=== PATIENT | female | born 1975 | race Hispanic/Latino ===

== ENCOUNTER → 2017-11-05 | Outpatient (CLI) | payer BC | END | disposition home or self-care (01) | LOC: RAH 15:11 | PROVIDERS: ATTEND Internal Medicine | DX: Z12.31 Encounter for screening mammogram for malignant neoplasm of breast (principal) | CPT/HCPCS: 77067 ==

== ENCOUNTER → 2020-07-10 | Outpatient (CLI) | payer BC | END | disposition home or self-care (01) | LOC: RAH 15:08 | PROVIDERS: ATTEND Obstetrics & Gynecology | DX: Z12.31 Encounter for screening mammogram for malignant neoplasm of breast (principal) | CPT/HCPCS: 77067 ==

== ENCOUNTER 2020-12-06 06:27 | Day surgery (SDC) | payer BC ==
[2020-11-28 14:31] LABS: BASOPHILS % (AUTO) 0.7 % (0.0-5.0); EOSINOPHILS % (AUTO) 0.9 % (0.0-8.0); HEMATOCRIT 41.8 % (36-48); LYMPHOCYTES % (AUTO) 36.1 % (21.0-51.0); MEAN CORPUSCULAR HEMOGLOBIN 29.6 pg (27.0-33.0); MEAN CORPUSCULAR HGB CONC 33.3 g/dL (32.0-36.0); MEAN CORPUSCULAR VOLUME 89.1 fL (79-99); MONOCYTES % (AUTO) 5.3 % (3.0-13.0); NEUTROPHILS % (AUTO) 56.9 % (40.0-77.0); PLATELET COUNT (AUTO) 325 K/uL (130-400); RED BLOOD CELL COUNT(AUTO) 4.69 MIL/uL (4.00-5.50); RED CELL DISTRIBUTION WIDTH 12.8 % (11.0-15.5); WHITE BLOOD COUNT (AUTO) 8.1 K/uL (4.8-10.8)
[2020-12-05 13:38] VITALS: BP 140/60
[~2020-12-06] VITALS: Ht 162.6 cm; Wt 85.5 kg
[2020-12-06] VITALS (20 sets, daily range): BP systolic 109–127; BP diastolic 58–76
[~2020-12-06 06:27] MED LIST: ASCO100031 PO; CEFAZOLIN SODIUM 1 GM VIAL IVP SCH; METRONIDAZOLE 500MG/100ML BAG 100 ML IVPB SCH; OXYM15MI2 NS
[2020-12-06] MEDS ORDERED: SUCCINYLCHOLINE 200MG/10ML SYR ONE (07:17)
[2020-12-06] MEDS ORDERED: LIDOCAINE PF 100MG/5ML (2%) SYRINGE 5ML ONE (07:17)
[2020-12-06] MEDS ORDERED: FENTANYL CITRATE PF 50 MCG/1 ML 2ML VIAL ONE (07:18)
[2020-12-06] MEDS ORDERED: PHENAZOPYRIDINE HCL 200 MG TABLET ONE (07:18)
[2020-12-06] MEDS ORDERED: PROPOFOL 10 MG/ML 20ML VIAL IV ONE (07:18)
[2020-12-06] MEDS ORDERED: ROCURONIUM 10MG/1ML SYR 10 MG/ML ML ONE (07:18)
[2020-12-06] MEDS ORDERED: LACTATED RINGERS 1000ML 1,000 ML IV ONE (07:20)
[2020-12-06] MEDS ORDERED: LIDOCAINE 1%-EPI 1:100,000 20 ML VIAL IJ SCH (07:30)
[2020-12-06] MEDS ORDERED: GLYCOPYRROLATE 1 MG/5 ML SYRINGE ONE (08:33)
== END 2020-12-06 12:10 | disposition home or self-care (01) ==
LOC: DAH 06:27
PROVIDERS: ATTEND Obstetrics & Gynecology
DX: N39.3 Stress incontinence (female) (male) (principal); Z79.899 Other long term (current) drug therapy
CPT/HCPCS: 36415; 57288; 85025; 87635; A4215 ×2; A4221 ×2; A4222 ×2; A4223 ×2; A4663; C1771; C9803; J0330; J0690; J2001; J2704; J3010; J3490 ×3; J7120 ×2

== ENCOUNTER → 2022-07-22 | Outpatient (CLI) | payer BC ==
[~2022-07-22] MED LIST changes: -CEFAZOLIN SODIUM 1 GM VIAL IVP SCH; -METRONIDAZOLE 500MG/100ML BAG 100 ML IVPB SCH
== END | disposition home or self-care (01) ==
LOC: RAH 08:22
PROVIDERS: ATTEND Obstetrics & Gynecology
DX: Z12.31 Encounter for screening mammogram for malignant neoplasm of breast (principal)
CPT/HCPCS: 77067

== ENCOUNTER → 2023-11-18 | Outpatient (CLI) | payer BC ==
[~2023-11-18] MED LIST changes: +PHENYLEPHRINE HCL 10 MG/ML 1ML VIAL IV ONE
== END | disposition home or self-care (01) ==
LOC: RAH 14:39
PROVIDERS: ATTEND Obstetrics & Gynecology
DX: Z12.31 Encounter for screening mammogram for malignant neoplasm of breast (principal); R92.323 Mammographic fibroglandular density, bilateral breasts
CPT/HCPCS: 77067; J2371

== ENCOUNTER → 2024-10-07 | Outpatient (CLI) | payer BC ==
[~2024-10-07] MED LIST changes: -PHENYLEPHRINE HCL 10 MG/ML 1ML VIAL IV ONE
--- NOTE | 2024-10-07 15:29 | HMCIMG ---
DEXA BONE DENSITY SURVEY HISTORY: Postmenopausal COMPARISON: None FINDINGS: Bone densitometry study was performed. Bone mineral density of the lumbar spine is 0.833 gram per centimeter square which corresponds to a T score of -1.9 and a Z score of -1.2. Bone mineral density of the left hip is 0.872 grams per centimeter square which corresponds to a T score of -0.6 and a Z score of -0.1. IMPRESSION: 1. Normal bone mineral density of the left hip and osteopenia of the lumbar spine..
== END | disposition home or self-care (01) ==
LOC: RAH 08:17
PROVIDERS: ATTEND Internal Medicine
DX: M85.88 Other specified disorders of bone density and structure, other site (principal); Z13.820 Encounter for screening for osteoporosis; Z78.0 Asymptomatic menopausal state
CPT/HCPCS: 77080

== ENCOUNTER → 2024-11-18 | Outpatient (CLI) | payer BC ==
--- NOTE | 2024-11-19 08:59 | HMCIMG ---
Exam Type: MAMMO SCREENING BILATERAL Clinical Information: ANNUAL SCREENING Comparison: November 18, 2023 Technique: Mammogram with CAD was performed with CC and MLO projections. CAD shows no worrisome regions. FINDINGS: The breasts are heterogeneously dense, which may obscure small masses. No dominant mass or suspicious microcalcification identified. There is no nipple retraction or skin thickening. Benign-appearing calcifications are seen. CAD shows no worrisome regions. IMPRESSION: 1. No mammographic signs of malignancy. 2. Routine follow-up recommended. CATEGORY 2: BENIGN FINDINGS Note: A negative x-ray should not delay biopsy if a dominant or clinically suspicious mass is present, since 8-10% of cancers are not identified by mammography. Dense breasts may obscure an underlying neoplasm.
== END | disposition home or self-care (01) ==
LOC: RAH 10:57
PROVIDERS: ATTEND Obstetrics & Gynecology
DX: Z12.31 Encounter for screening mammogram for malignant neoplasm of breast (principal); R92.333 Mammographic heterogeneous density, bilateral breasts
CPT/HCPCS: 77067

== ENCOUNTER → 2024-12-22 | Outpatient (CLI) | payer BC | END | disposition home or self-care (01) | LOC: RAH 14:12 | PROVIDERS: ATTEND Obstetrics & Gynecology | DX: N60.11 Diffuse cystic mastopathy of right breast (principal); N60.12 Diffuse cystic mastopathy of left breast ==

== ENCOUNTER → 2025-01-10 | Outpatient (CLI) | payer BC ==
[~2025-01-10] MED LIST changes: -ASCO100031 PO; +ASCO10004 PO
[2025-01-10 09:49] LABS: INR 0.97 (0.85-1.15)
--- NOTE | 2025-01-10 11:55 | NUR ---
U/S GD LT BREAST BX PROCEDURE PERFORMED BY DR CURTIS. PUNCTURE SITE LT BREAST AND PATIENT TOLERATED PROCEDURE WELL. SPECIMEN X 4 COLLECTED AND SENT TO LAB. END OF PROCEDURE AT 1135. BREAST TISSUE MARKER DEPLOYED. BIOPSY NEEDLE REMOVED AND DRESSING APPLIED. NO BLEEDING NOTED. DISCHARGE INSTRUCTIONS GIVEN TO PATIENT AND VERBALIZED UNDERSTANDING. DISCHARGED VIA AMBULATORY AAO X3 WITH NO C/O PAIN.
--- NOTE | 2025-01-10 12:17 | HMCIMG ---
PERCUTANEOUS ULTRASOUND-GUIDED BIOPSY OF left breast at 9:00 BREAST MASS with placement of a biopsy marker: CLINICAL HISTORY: This is a 49 [id number] female with left breast lesion at 9:00 for ultrasound-guided biopsy. The risk and benefit was explained to the patient. The risks include bleeding and infection. The patient consented to the procedure. Procedure: Under ultrasound guidance left breast lesion at 9:00 was localized. was localized. After sterile prep and drape, 1% Xylocaine was used for local anesthetic. Using a 14-gauge Bard gun a total of 4 core biopsy was obtained. The specimen was sent for histology and cell block. Postbiopsy a biopsy marker was placed at the biopsy site. Patient tolerated procedure well. IMPRESSION: 1. PERCUTANEOUS ULTRASOUND-GUIDED BIOPSY OF left BREAST WITH SPECIMENS SENT FOR HISTOLOGY AND CELL BLOCK. THE PATIENT TOLERATED PROCEDURE WELL. PATHOLOGY REPORT IS PENDING. 2. PATIENT IS TO HAVE A POST BIOPSY MARKER PLACEMENT UNILATERAL left BREAST MAMMOGRAM.
--- NOTE | 2025-01-10 12:20 | HMCIMG ---
DIGITAL left breast DIAGNOSTIC MAMMOGRAM postultrasound-guided biopsy mammogram with biopsy marker placement Technique: The digital mammographic examination of left breast in craniocaudal, mediolateral oblique views along with CAD was obtained. History: This is a 49 years year-old female who underwent left breast biopsy at 9:00 with placement of a biopsy marker.. Patient has no family history of breast cancer. Patient has no complaint Reference:Prior mammogram from 11/18/2024, 11/18/2023, 07/22/2022, 2021, 07/10/2020, 12/30/2018, 11/05/2017, and 05/22/2016 are available.. Breast composition: Breast composition C: The breasts are heterogeneously dense, which may obscure small masses. Finding: The digital mammographic examination of left breast in craniocaudal and mediolateral oblique view along with CAD demonstrates a biopsy marker at 9:00 in satisfactory position.. There is no evidence of any dendritic mass, cluster microcalcification or architectural distortion. The retromammary fat appears to be normal. IMPRESSION: Postbiopsy biopsy marker now o'clock in satisfactory position. FINAL ASSESSMENT: Post-procedure Mammogram for Marker Placement. NOTE: IF A WORK-UP OF THIS PATIENT LEADS TO A BIOPSY, PLEASE FORWARD A COPY OF THE PATHOLOGY REPORT TO OUR OFFICE REQUIRED BY [employer] MARCH 09, 1994. A NEGATIVE MAMMOGRAM SHOULD NOT PRECLUDE BIOPSY OF A CLINICALLY PALPABLE SUSPICIOUS MASS, 10% OF BREAST CANCERS ARE MAMMOGRAPHICALLY OCCULT. THIS MAMMOGRAPHY FACILITY IS FULLY ACCREDITED BY THE [employer]OD [employer] (FDA). THANK YOU FOR THIS REFERRAL.
== END | disposition home or self-care (01) ==
LOC: RAH 09:00
PROVIDERS: ATTEND Obstetrics & Gynecology
DX: D24.2 Benign neoplasm of left breast (principal); Z79.01 Long term (current) use of anticoagulants; Z90.49 Acquired absence of other specified parts of digestive tract; Z90.710 Acquired absence of both cervix and uterus; Z98.51 Tubal ligation status
CPT/HCPCS: 19083; 77065; 85610; 85730; 36415; 88305; A4215 ×2